=== PATIENT | female | born 1980 | race African-American/Black ===

== ENCOUNTER 2021-09-25 21:25 | Emergency (ER) | payer OTHER ==
[~2021-09-25] VITALS: Ht 157.5 cm; Wt 83.9 kg
[2021-09-26] VITALS: BP 128/77; TEMP 98.7
== END 2021-09-26 | disposition home or self-care (01) ==
LOC: ED 21:25
DX: H11.32 Conjunctival hemorrhage, left eye (principal); S00.83XA Contusion of other part of head, initial encounter; S00.531A Contusion of lip, initial encounter; S20.312A Abrasion of left front wall of thorax, initial encounter; S10.81XA Abrasion of other specified part of neck, initial encounter; S50.12XA Contusion of left forearm, initial encounter; S40.012A Contusion of left shoulder, initial encounter; Y04.2XXA Assault by strike against or bumped into by another person, initial encounter; Y92.096 Garden or yard of other non-institutional residence as the place of occurrence of the external cause
CPT/HCPCS: 99282